=== PATIENT | female | born 1995 | race African-American/Black ===

== ENCOUNTER 2024-05-02 16:51 | Emergency (ER) | payer BC, MEDICAID, SELFPAY ==
[2024-05-02 17:18] VITALS: BP 148/109; PULSE 85; RESP 16; TEMP 36.4; O2SAT 99
--- NOTE | 2024-05-02 17:38 | ED_ITS ---
HPI - URI/Sore Throat General Chief Complaint: Upper Respiratory Infection Stated Complaint: cough,diarrhea,left shoulder pain Time Seen by Provider: 05/02/24 17:03 Source: patient Mode of arrival: ambulatory Limitations: no limitations History of Present Illness HPI Narrative: Patient is a 28-year-old female that presents with cough for a week and a half. Patient has also been vomiting the last few days and has not been able is take her blood pressure medicine. Denies any fever, sore throat, congestion, ear pain. Has been taking [id number] medication. Related Data Home Medications ?Medication ?Instructions ?Recorded ?Confirmed ?Last Taken ?Type hydroxyzine HCl 25 mg tablet 25 mg PO HS 05/02/24 05/02/24 Unknown History metoprolol succinate 50 mg 50 mg PO DAILY 05/02/24 05/02/24 Unknown History tablet,extended release 24 hr sertraline 100 mg tablet 100 mg PO Q24H 05/02/24 05/02/24 Unknown History Allergies Allergy/AdvReac Type Severity Reaction Status Date / Time No Known Allergies Allergy Verified 05/02/24 17:50 Review of Systems Review of Systems: All systems reviewed & are unremarkable except as noted in HPI and below Constitutional: Constitutional: Denies body ache(s), Denies chills, Denies fatigue, Denies fever(s), Denies headache(s), Denies malaise and Denies weakness Eyes: Eyes: Denies blurry vision, Denies itchy eyes and Denies loss of vision ENT: Denies otalgia, Denies headache(s), Denies nasal congestion, Denies sinus pain and Denies sore throat Cardiovascular: Cardiovascular: Denies chest pain, Denies irregular heart rhythm and Denies dyspnea Respiratory: Respiratory: Reports cough and Denies dyspnea Gastrointestinal: Gastrointestinal: Denies abdominal pain, Denies diarrhea, Reports nausea and Reports vomiting Musculoskeletal: Musculoskeletal: Denies back pain, Denies myalgias and Denies arthralgias Integumentary/Breasts: Skin/Breast: Denies pruritus and Denies rash Neurologic: Denies headache(s), Denies loss of vision and Denies weakness Psychiatric: Psychiatric: Reports no additional psychiatric complaints Endocrine: Endocrine: Denies fatigue Allergic/Immunologic: Allergic/Immunologic: Denies itchy eyes PMFSH Comments At time of signature, agree with nursing past medical, surgical, social and family history. There is no relevant family history pertinent to the presenting complaint. Exam Const: General: cooperative, healthy appearing, comfortable, no acute distress and well nourished Nutritional Appearance: well nourished Orientation/consciousness: patient oriented x3 Limitations: no limitations HENMT: Head: normal to inspection, normocephalic and atraumatic Ears: hearing grossly normal bilaterally, external ears normal, TM's normal bilaterally, EAC's normal and no periauricular adenopathy Face/Nose/Sinus: Normal external nose present, Abnormal mucous membranes and turbinates present erythematous bilateral and diffuse, normal facial exam, sinuses nontender and face symmetric Face and sinus: normal facial exam, sinuses nontender and face symmetric Mouth: Yes Normal oral and palatal mucosa present, Yes lip normal, Yes tongue normal, Yes Normal salivary glands and ducts present, Yes oropharynx normal and Yes moist mucous membranes Teeth and gingiva: dentition normal Throat: posterior oropharynx normal, tonsils normal and uvula midline Eyes: General: appearance normal, both eyes and all related structures Alignment and Position: alignment normal and position normal Periorbital: periorbital findings normal Eyelids: eyelids normal Pupils: Equal, round and reactive pupils present Neck: Neck: normal visual inspection, full ROM, no lymphadenopathy and supple Chest: Chest palpation & inspection: normal inspection of the chest and normal palpation of entire chest wall Resp: Effort & Inspection: normal respiratory effort, able to speak in complete sentences and Actively coughing actively coughing Auscultation: crackles (coarse) diffuse, no rales, no rhonchi and no wheezes Cardio: Rate: regular rate Rhythm: regular rhythm Heart sounds: S1 normal heart sound present and S2 normal heart sound present GI: Inspection: normal to inspection Skin: General skin exam: normal color and no rashes or lesions noted Neuro: General: patient oriented x3 and moves all extremities Cranial nerves: Yes Equal, round and reactive pupils present Speech: normal speech Gait exam (Neuro): Normal gait present Extrem: General: normal to inspection, full ROM and no edema Psych: Appearance: grossly normal and well kempt Mental Status: mental status grossly normal Speech and movement: Normal speech and movement present Affect: normal affect Attitude: cooperative Thought process: Normal thought process present Course Course Emergency Course: Discharge instructions reviewed with patient, as well as provided in writing per nursing staff. The instructions also include specific and strict return/GO TO THE ER as well as f/u information. All questions have been answered, and the patient deny any further questions with discharge and discharge plan. Portions of this record may have been created with voice recognition software Level of Care: Express Care Visit Vital Signs Vital signs: Vital Signs Temperature 36.4 C 05/02/24 17:18 Pulse Rate 85 05/02/24 17:18 Respiratory Rate 16 05/02/24 17:18 Blood Pressure 148/109 H 05/02/24 17:18 Pulse Oximetry 99 05/02/24 17:18 Oxygen Delivery Room Air 05/02/24 17:18 Temperature 36.4 C 05/02/24 17:18 Pulse Rate 85 05/02/24 17:18 Respiratory Rate 16 05/02/24 17:18 Blood Pressure 148/109 H 05/02/24 17:18 Pulse Oximetry 99 05/02/24 17:18 Oxygen Delivery Room Air 05/02/24 17:18 Reviewed MDM - URI/Sore Throat MDM Narrative Medical decision making narrative: Discussed importance taking blood pressure medicine Pt well hydrated appearing, in no respiratory distress, hemodynamically stable. Recommend supportive care. The patient is stable at time of discharge the clinical impression was discussed and the patient was given the opportunity to ask questions, which were addressed as completely as possible given the information available at present. Anticipatory guidance and return to care precautions were discussed and the importance of primary care follow-up was stressed and encouraged. The patient voiced understanding of the plan, indications to return, and the need for follow-up. Differential diagnosis considered: Heredia virus, strep pharyngitis, allergic rhinitis, upper respiratory tract infection, sinusitis, rhinosinusitis, nasopharyngitis. viral pharyngitis, otitis media, otitis externa, otitis effusion, foreign body, cerumen impaction, viral syndrome, and influenza.? Exam findings show no acute concerns or changes; patient is non-toxic appearing and is in no distress.? Patient is appropriate for outpatient treatment and follow- up.? Lab Data Attestation: I reviewed the patient's lab results. Lab results narrative: COVID negative Labs: Lab Results 05/02/24 Range/Units 17:20 POC Influenza A Ag Negative (Negative) POC Influenza B Ag Negative (Negative) Discharge Plan Discharge Clinical Impression: Acute purulent bronchitis Patient Disposition: Home, Self-Care Condition: Stable Instructions: Acute Bronchitis (ED) Additional Instructions: Take antibiotic as prescribed. Take steroids in the morning with food. Use Tessalon Perles as needed for cough. Use inhaler with spacer as needed. Other symptomatic treatments include: -Alternate Tylenol and Motrin per package directions for fever or pain. -Antihistamine medication such as Benadryl at night and Zyrtec/Claritin/Vaishali during the day can help improve symptoms. -Use Flonase twice a day for 5 days then daily to help reduce the inflammation and dry up your sinuses. -You can also use Sudafed or Mucinex. Be sure to drink plenty of water with these medications at least 8 ounces with every dose and it is important to drink 8 to 10 glasses of water per day. Water is a natural decongestant -Eat and drink things that are easy to swallow, like tea or soup, or popsicles. -Oral rinses such as: Salt water gargles and/or may use topical anesthetic (eg. Chloraseptic spray) or lozenges to relieve dryness or throat pain). -Frequent hand washing or hand operations intern is one of the best ways to prevent spread of infection. -Using a vaporizer or humidifier at night will also help thin secretions and help with coughing up phlegm. -Follow up with primary care provider in 3-5 days if condition is not improving - For new or worsening symptoms go directly to the nearest ER Patient Language: [place] Prescriptions: New prednisone 20 mg tablet 40 mg PO DAILY 5 Days Qty: 10 0RF amoxicillin 875 mg tablet 875 mg PO Q12H 7 Days Qty: 14 0RF benzonatate 100 mg capsule 100 mg PO BID PRN (Reason: cough) Qty: 14 0RF albuterol sulfate 90 mcg/actuation HFA aerosol inhaler 2 puff inhalation QID PRN (Reason: shortness of breath or wheezing) Qty: 6.7 0RF ondansetron 4 mg tablet,disintegrating 4 mg PO Q6-8H PRN (Reason: nausea and vomiting) Qty: 7 0RF (DME) Aerochamber MV Spacer See Rx Instructions .Route Qty: 1 0RF Rx Instructions: As directed No Action hydroxyzine HCl 25 mg tablet 25 mg PO HS metoprolol succinate 50 mg tablet extended release 24 hr 50 mg PO DAILY sertraline 100 mg tablet 100 mg PO Q24H Follow-up/Referrals: PHYSICIAN,IMPREGNATOR [employer] [Primary Care Provider] - Vinod Rodríguez MD [Physician] - 3 Days Stand Alone Forms: Work/School Release IP Time of Disposition: 18:15
[2024-05-02 17:45] LABS: EDINFLUASCREEN Negative (Negative); EDINFLUBSCREEN Negative (Negative)
== END 2024-05-02 18:18 | disposition home or self-care (01) ==
PROVIDERS: Emergency Provider Nurse Practitioner Family
DX: J20.9 Acute bronchitis, unspecified (principal); I10 Essential (primary) hypertension; F41.9 Anxiety disorder, unspecified; F32.A Depression, unspecified
CPT/HCPCS: 87804; 99203; G0463

== ENCOUNTER 2024-09-13 14:04 | Emergency (ER) | payer BC, MEDICAID, SELFPAY ==
--- NOTE | ~2024-09-13 | CT_ITS ---
CT abdomen pelvis w con Ordering provider: Didi Cruz PA-C History: 28 years Female with . n/v/d . Comparison: None. Technique: CT abdomen and pelvis with IV and without oral contrast. Automated exposure control and it erative reconstruction technique were employed. The dose-length product was 1401.91 mGy-cm. 100 mL Om nipaque 350 was given IV. Findings: VISUALIZED LOWER CHEST: Nodule is seen in the medial aspect of the right lung which measures 8 mm. UPPER ABDOMINAL ORGANS: Liver: Gallbladder fat infiltration Stomach/duodenum: Normal. Pancreas: Normal. Adrenals: Normal. Kidneys: Normal. PELVIC ORGANS: The bladder is underfilled. Follicles are seen in the ovaries. BOWEL AND MESENTERY: Colon: No evidence of diverticulitis.. Normal appendix. Small Bowel: Normal. No obstruction. Peritoneum/mesentery: No free air or free fluid. No mesenteric lymphadenopathy. RETROPERITONEUM: Normal aorta. No retroperitoneal lymphadenopathy. MUSCULOSKELETAL: Superficial soft tissues: The superficial soft tissues are normal. Bones: Normal spine. Bilateral spondylolysis at the level of L5-S1 is noted. IMPRESSION: 1. No evidence of appendicitis, diverticulitis or intestinal obstruction. No renal stones seen. 2. Fat infiltration of the liver. Reviewed, dictated and finalized at location A. IMPRESSION: 1. No evidence of appendicitis, diverticulitis or intestinal obstruction. No r enal stones seen. 2. Fat infiltration of the liver.
--- OUTSIDE RECORDS SUMMARY | 2024-09-13 14:06 | XMS_ITS | Continuity of Care Document ---
Author Organization [facility] Address [address] [place] [address] Phone Care Team Providers Care Recording Studio Set Up Worker Name Role Phone Isgrig OD OD, Jose Unavailable Unavailab le Allergies, Adverse Reactions, Alerts Substance Reaction Status Criticality No Known allergies Medications Medication Instructions Dosage Effective Dates (start - stop) Status Comments MELATONIN (unknown strength) Not Available - Active MULTIVITAMINS (unknown strength) Not Available - Active Procedures Procedure Date REFRACTION EYE EXAM, NEW PATIENT EYE EXAM, NEW PATIENT REFRACTION Advance Directives Directive Yes / No Effective Date File Name Resuscitation Not Answered N/A N/A Life Support Not Answered N/A N/A Intubation Not Answered N/A N/A Antibiotics Not Answered N/A N/A IV Fluid Support Not Answered N/A N/A Tube Feed Not Answered N/A N/A Other Directive N/A N/A WARNING:The information contained in this section is historical and is provided for information only and does not constitute a legal document or any assurance that the information is still accurate. Please verify the information with the collier of the legal document before using it for clinical purposes. Encounters Encounter Description Practice Location Reason(s) For Visit Diagnoses Date Provider Providers Copied on Encounter [facility], [address] [place], [id number] tel:[phone] [place] Routine eye exam 6 Isgoralia OD Jose. [facility], [facility] [address] [place], [id number]. tel:[phone] [facility], [facility] [place], [place], [id number] tel:[phone] NINA [place] HeadacheHype rmetropiaAst igmatism, unspecified 1 No Information Family History Family Member Type Diagnosis Age At Onset Mother Problem (finding) Color Blind Payers Payer name Insurance type Covered republican ID Barrington cooper(s) [facility] [id number] [facility] [id number] Social History Type Description Quantity Date Captured Comments Alcohol Use Details No Caffeine Use Details Unknown Tobacco Use Status Never smoked tobacco 2015 Smoking Status Never smoker Sex Female Chief Complaint And Reason For Visit No Information Reason For Referral Reason For Referral No Information History Of Present Illness Encounter Date Complaint History Of Prese nt Illness No Information Functional Status Date Functional Assessmen t No Information Instructions Date Instruction Additional Beni reagan - Return in 2 years with Jose Carrera OD for Complete. Related to Routine eye exam Routine eye exam OU Condition: new prob, no addtl w/u needed. - Discussed. No need for specs at this time. Good acuities uncorrected. Ocular health unremarkable. Pt ed to call right away if ever any sudden changes in vision. Monitor. Related to Routine eye exam Assessments Type Assessment Date No Information Patient Care Teams Name Effective Dates (start - stop) Status Members No Information
[2024-09-13 14:36] VITALS: BP 151/106; PULSE 98; RESP 16; TEMP 36.6; O2SAT 95
--- NOTE | 2024-09-13 16:00 | ED_ITS ---
HPI - General Adult General Chief complaint: Nausea/Vomiting/Diarrhea Stated complaint: High BP, vomiting Time Seen by Provider: 09/13/24 16:01 Focused HPI: Charley Sheth is a 28 y/o female who presents with reports that she started having diarrhea that was yellow 3 days ago and then 2 days ago started vomiting the same what she has been pooping / yellow bile stuff Denies abdominal pain /she states feeling hot and cold No recent antibiotics GENERAL: Well-appearing, well-nourished, and in no acute distress. HEAD: Normocephalic, atraumatic. CHEST: Clear to auscultation. No respiratory distress. HEART: Regular rate and rhythm. NEURO: Alert and oriented x3. Patient screened in triage and initial orders placed. Additional care and disposition to be based upon diagnostic testing and treatment. Related Data Home Medications Medication Instructions Recorded Confirmed Last Taken Type hydroxyzine HCl 25 mg tablet 25 mg PO HS 05/02/24 05/02/24 Unknown History metoprolol succinate 50 mg 50 mg PO DAILY 05/02/24 05/02/24 Unknown History tablet,extended release 24 hr sertraline 100 mg tablet 100 mg PO Q24H 05/02/24 05/02/24 Unknown History Allergies Allergy/AdvReac Type Severity Reaction Status Date / Time No Known Allergies Allergy Verified 09/13/24 14:05 Course Vital Signs Vital signs: Vital Signs Temperature 36.6 C 09/13/24 14:36 Pulse Rate 98 09/13/24 14:36 Respiratory Rate 16 09/13/24 14:36 Blood Pressure 151/106 H 09/13/24 14:36 Pulse Oximetry 95 09/13/24 14:36 Oxygen Delivery Room Air 09/13/24 14:36 Temperature 36.7 C 09/14/24 01:40 Pulse Rate 66 09/14/24 01:40 Respiratory Rate 13 09/14/24 01:40 Blood Pressure 119/48 L 09/14/24 01:40 Pulse Oximetry 100 09/14/24 01:40 Oxygen Delivery Room Air 09/13/24 14:36 Medical Decision Making Vital Signs Vital Signs: Vital Signs Temperature 36.6 C 09/13/24 14:36 Pulse Rate 98 09/13/24 14:36 Respiratory Rate 16 09/13/24 14:36 Blood Pressure 151/106 H 09/13/24 14:36 Pulse Oximetry 95 09/13/24 14:36 Oxygen Delivery Room Air 09/13/24 14:36 Temperature 36.7 C 09/14/24 01:40 Pulse Rate 66 09/14/24 01:40 Respiratory Rate 13 09/14/24 01:40 Blood Pressure 119/48 L 09/14/24 01:40 Pulse Oximetry 100 09/14/24 01:40 Oxygen Delivery Room Air 09/13/24 14:36 Lab Data 09/13/24 21:23 09/13/24 21:23 Labs: Lab Results 09/13/24 09/13/24 09/13/24 Range/Units 21:22 21:23 21:27 WBC 11.3 H (4.5-10.0) K/mm3 RBC 5.45 H (4.2-5.4) M/mm3 Hgb 13.6 (12.0-15.0) g/dL Hct 44.0 (37.0-47.0) % MCV 80.7 (80-100) fl MCH 25.0 L (26-34) pg MCHC 30.9 L (32-36) g/dl RDW 14.3 (11.5-14.5) % Plt Count 408 H (150-375) k/mm3 MPV 10.6 H (7.4-10.4) fl Immature Gran % (Auto) 0.3 (0-0.5) % Neut % (Auto) 57.3 (45.5-73.1) % Lymph % (Auto) 34.6 (18.3-44.2) % [place] % (Auto) 5.5 (2.6-8.5) % Eos % (Auto) 1.7 (0-4.4) % Baso % (Auto) 0.6 (0.2-1.2) % Lymph # (Auto) 3.90 H (0.9-3.2) K/mm3 [place] # (Auto) 0.6 (0.1-0.6) K/mm3 Eos # (Auto) 0.2 (0-0.3) K/mm3 Baso # (Auto) 0.1 (0.0-0.1) K/mm3 Abs Immat Gran (auto) 0.03 (0.00-0.031) K/mm3 Absolute Neuts (auto) 6.5 (1.3-6.7) K/mm3 Absolute Nucleated RBC 0.000 (0.0-0.012) K/mm3 Nucleated RBC % 0.0 (0.0-0.2) % Sodium 139 (137-145) mmol/L Potassium 3.4 (3.4-5.0) mmol/L Chloride 102 (98-107) mmol/L Carbon Dioxide 27 (22-30) mmol/L Anion Gap 10 (4-12) mmol/L BUN 8 (7-17) mg/dL Creatinine 0.71 (0.7-1.0) mg/dL Estim Creat Clear Calc 131 ml/min Estimated GFR > 60 (59 - ) Glucose 95 (65-110) mg/dL Calcium 9.5 (8.4-10.2) mg/dL Magnesium 2.2 (1.6-2.3) mg/dL Total Bilirubin 0.7 (0.2-1.3) mg/dL AST 53 H (14-36) U/L ALT 43 H (6-35) U/L Alkaline Phosphatase 93 (38-126) U/L Total Protein 8.0 (6.3-8.2) g/dL Albumin 4.7 (3.5-5.1) g/dL Lipase 97 (23-300) U/L POC Urine HCG, Qual Negative (Negative) Discharge Plan Discharge Clinical Impression: Gastroenteritis, Anxiety, Incidental pulmonary nodule Patient Disposition: Home Condition: Stable Instructions: Antibiotic Form, Clear Liquid Diet (ED), Gastroenteritis (ED), Acute Nausea and Vomiting (ED) Additional Instructions: Utilize Tylenol, Bentyl as needed for further abdominal discomfort. Utilize zofran as needed for further nausea. Increase fluid intake. Recommend electrolyte rich fluids, gatorade, pedialyte, body armour. Recommend clear liquids or bland diet until symptoms improve, such as bananas, rice, applesauce, toast, or crackers. Follow up with your primary care doctor for further evaluation. Return to the ED if you experience worsening or severe symptoms, unable to keep down food or drink, severe pain, fevers, rectal bleeding, vomiting blood, or any other symptoms of concern. Your CT scan showed evidence of a pulmonary nodule. You will need repeat imaging of this in the future. Follow-up with your primary care doctor for this. Patient Language: Swedish Prescriptions: New dicyclomine 20 mg tablet 20 mg PO TID PRN (Reason: Abdominal Discomfort) Qty: 15 0RF ondansetron 4 mg tablet,disintegrating 4 mg PO Q8H PRN (Reason: nausea and vomiting) Qty: 15 0RF No Action hydroxyzine HCl 25 mg tablet 25 mg PO HS metoprolol succinate 50 mg tablet extended release 24 hr 50 mg PO DAILY sertraline 100 mg tablet 100 mg PO Q24H prednisone 20 mg tablet 40 mg PO DAILY 5 Days Qty: 10 0RF amoxicillin 875 mg tablet 875 mg PO Q12H 7 Days Qty: 14 0RF benzonatate 100 mg capsule 100 mg PO BID PRN (Reason: cough) Qty: 14 0RF albuterol sulfate 90 mcg/actuation HFA aerosol inhaler 2 puff inhalation QID PRN (Reason: shortness of breath or wheezing) Qty: 6.7 0RF ondansetron 4 mg tablet,disintegrating 4 mg PO Q6-8H PRN (Reason: nausea and vomiting) Qty: 7 0RF (DME) Aerochamber MV Spacer See Rx Instructions .Route Qty: 1 0RF Rx Instructions: As directed Follow-up/Referrals: PHYSICIAN,SHRIMP PEELING MACHINE TENDER [Primary Care Provider] - Vinod Rodríguez MD [Physician] - (PRIMARY CARE) Time of Disposition: 00:53
--- NOTE | 2024-09-13 21:13 | PC.NURSE ---
pt presents to ED c/o n/v onset monday. Pt states she hasnt taken been compliant with HTN meds, and antianxiety medication. Pt states she hasnt been able to keep anything down, and is vomiting bile. HX: IBS
[2024-09-13 21:29] LABS: Basophils Absolute Auto 0.1 K/mm3 (0.0-0.1); Basophils Percent Auto 0.6 % (0.2-1.2); Eosinophils Absolute Auto 0.2 K/mm3 (0-0.3); Eosinophils Percent Auto 1.7 % (0-4.4); Hemoglobin 13.6 g/dL (12.0-15.0); Immature Granulocyte Absolute 0.03 K/mm3 (0.00-0.031); Immature Granulocyte Percent A 0.3 % (0-0.5); Lymphocytes Percent Auto 34.6 % (18.3-44.2); Mean Corpuscular HGB Conc 30.9 g/dl (32-36); Mean Corpuscular Volume 80.7 fl (80-100); Mean Platelet Volume 10.6 fl (7.4-10.4); Monocytes Absolute Auto 0.6 K/mm3 (0.1-0.6); Monocytes Percent Auto 5.5 % (2.6-8.5); Neutrophils Absolute Auto 6.5 K/mm3 (1.3-6.7); Neutrophils Percent Auto 57.3 % (45.5-73.1); Platelet Count Result 408 k/mm3 (150-375); Red Blood Count 5.45 M/mm3 (4.2-5.4); Red Cell Distribution Width 14.3 % (11.5-14.5); White Blood Count 11.3 K/mm3 (4.5-10.0)
[2024-09-13 21:30] LABS: BEDSIDEPREGUCG Negative (Negative)
--- OUTSIDE RECORDS SUMMARY | 2024-09-13 21:33 | XMS_ITS | Continuity of Care Document ---
Author Organization [facility] Address [address] [place] [address] Phone Care Team Providers Care Stockroom Worker Name Role Phone Isgrig OD OD, [...] on Encounter [facility], [address], [id number] [phone] NINA [place] Routine eye exam 6 Isgoralia OD Jose. [facility], [facility] [address], [id number]. [phone] [facility], [facility] [place], [place], [id number] tel:[phone] NINA [place] HeadacheHype rmetropiaAst igmatism, unspecified 1 No Information Family History Family Member Type Diagnosis Age At Onset Mother Problem (finding) Color Blind Payers Payer name Insurance type Covered libertarian ID Barrington cooper(s) [facility] [id number] [facility] [id number] Social History Type Description Quantity Date [...]
[2024-09-13] MEDS: FAMOTIDINE 20 MG/2 ML VIAL IV PUSH (21:41)
[2024-09-13] MEDS: SODIUM CHLORIDE 0.9% IV 1,000 ML 999 ML IV CONT (21:41)
[2024-09-13] MEDS: ONDANSETRON INJ 4 MG/2 ML VIAL IV PUSH (21:41)
[2024-09-13 21:42] LABS: Alanine Aminotransferase 43 U/L (6-35); Albumin Level 4.7 g/dL (3.5-5.1); Alkaline Phosphatase 93 U/L (38-126); Anion Gap 10 mmol/L (4-12); Aspartate Amino Transferase 53 U/L (14-36); Bilirubin,Total 0.7 mg/dL (0.2-1.3); Blood Urea Nitrogen 8 mg/dL (7-17); Calcium 9.5 mg/dL (8.4-10.2); Carbon Dioxide 27 mmol/L (22-30); Chloride 102 mmol/L (98-107); Estimated CRCL calculation 131 ml/min; Estimated Glomerular Filt Rate > 60; Glucose 95 mg/dL (65-110); Lipase 97 U/L (23-300); Potassium 3.4 mmol/L (3.4-5.0); Sodium 139 mmol/L (137-145)
--- NOTE | 2024-09-13 22:13 | ED_ITS ---
HPI - Nausea/Vomiting/Diarrhea General Chief complaint: Nausea/Vomiting/Diarrhea Stated complaint: High BP, vomiting Time Seen by Provider: 09/13/24 16:01 Source: patient Mode of arrival: ambulatory Limitations: no limitations History of Present Illness HPI Narrative: Patient is a 28 y/o female who presents to the ED with c/o nausea and vomiting. Patient reports he has been sick for the past 3 days with nausea, vomiting, diarrhea. States her emesis and stool have been yellow in color. She notes history of IBS. Has had difficulty keeping down food and drink. Denies hematemesis, rectal bleeding. Denies fevers. Denies cough or cold symptoms. She does note that other people at work have been sick as well. Related Data Home Medications Medication Instructions Recorded Confirmed Last Taken Type hydroxyzine HCl 25 mg tablet 25 mg PO HS 05/02/24 05/02/24 Unknown History metoprolol succinate 50 mg 50 mg PO DAILY 05/02/24 05/02/24 Unknown History tablet,extended release 24 hr sertraline 100 mg tablet 100 mg PO Q24H 05/02/24 05/02/24 Unknown History Allergies Allergy/AdvReac Type Severity Reaction Status Date / Time No Known Allergies Allergy Verified 09/13/24 14:05 Review of Systems 2 Review of Systems: All systems reviewed & are unremarkable except as noted in HPI. All systems reviewed & are unremarkable except as noted in HPI and below Exam 2 Narrative: GENERAL: Well appearing, morbidly obese with BMI of 42.2, non-toxic, in no acute distress. HEAD: Normocephalic, atraumatic. RESPIRATORY: Airway patent, respirations nonlabored. Clear to auscultation bilaterally, no rales, rhonchi, wheezing. CARDIOVASCULAR: Regular rate and rhythm without murmurs, rubs, or gallops. ABDOMINAL: Soft, very mild tenderness in epigastric region, periumbilical region, nondistended. Normoactive BS. MUSCULOSKELETAL: Moves all extremities. No gross deformities. SKIN: Warm, dry, normal color. NEURO: A&O X3. Speech clear. PSYCHIATRIC: Appropriate mood and affect. Normal interaction. Course Vital Signs Vital signs: Vital Signs Temperature 97.8 F 09/13/24 14:36 Pulse Rate 98 09/13/24 14:36 Respiratory Rate 16 09/13/24 14:36 Blood Pressure 151/106 H 09/13/24 14:36 Pulse Oximetry 95 09/13/24 14:36 Oxygen Delivery Room Air 09/13/24 14:36 Temperature 98.1 F 09/14/24 01:40 Pulse Rate 66 09/14/24 01:40 Respiratory Rate 13 09/14/24 01:40 Blood Pressure 119/48 L 09/14/24 01:40 Pulse Oximetry 100 09/14/24 01:40 Oxygen Delivery Room Air 09/13/24 14:36 MDM - Nausea/Vomiting/Diarrhea MDM Narrative Medical decision making narrative: Patient presented to ED with several day history of nausea, vomiting, diarrhea. History of IBS. Vital signs are stable upon arrival. Patient in no acute distress. Cbc with blood cell count of 11.3. Likely reactive. Fluids ongoing. CMP with stable electrolytes, stable kidney function. Minimal transaminitis. Normal bilirubin, lipase. Urine is negative. Patient declined further urinalysis testing. She denies any urinary complaints, dysuria, hematuria. Does not have concern for UTI. CT scan of abdomen/pelvis was obtained and no concerning findings. Does show incidental pulmonary nodule which I made patient aware of. Patient feeling better with supportive therapy. She did experience episode of anxiety in the ED. Does have history of this. States she has had increased stress recently. She was given small dose of Ativan with improvement. Patient safe for discharge home. Will discharge with Bentyl and Zofran. Given strict return precautions. She agrees with plan. Discharged in stable condition. Medical Records Attestation: I reviewed the patient's medical records. Lab Data Attestation: I reviewed the patient's lab results. 09/13/24 21:23 09/13/24 21:23 Labs: Lab Results 09/13/24 09/13/24 09/13/24 Range/Units 21:22 21:23 21:27 WBC 11.3 H (4.5-10.0) K/mm3 RBC 5.45 H (4.2-5.4) M/mm3 Hgb 13.6 (12.0-15.0) g/dL Hct 44.0 (37.0-47.0) % MCV 80.7 (80-100) fl MCH 25.0 L (26-34) pg MCHC 30.9 L (32-36) g/dl RDW 14.3 (11.5-14.5) % Plt Count 408 H (150-375) k/mm3 MPV 10.6 H (7.4-10.4) fl Immature Gran % (Auto) 0.3 (0-0.5) % Neut % (Auto) 57.3 (45.5-73.1) % Lymph % (Auto) 34.6 (18.3-44.2) % [place] % (Auto) 5.5 (2.6-8.5) % Eos % (Auto) 1.7 (0-4.4) % Baso % (Auto) 0.6 (0.2-1.2) % Lymph # (Auto) 3.90 H (0.9-3.2) K/mm3 [place] # (Auto) 0.6 (0.1-0.6) K/mm3 Eos # (Auto) 0.2 (0-0.3) K/mm3 Baso # (Auto) 0.1 (0.0-0.1) K/mm3 Abs Immat Gran (auto) 0.03 (0.00-0.031) K/mm3 Absolute Neuts (auto) 6.5 (1.3-6.7) K/mm3 Absolute Nucleated RBC 0.000 (0.0-0.012) K/mm3 Nucleated RBC % 0.0 (0.0-0.2) % Sodium 139 (137-145) mmol/L Potassium 3.4 (3.4-5.0) mmol/L Chloride 102 (98-107) mmol/L Carbon Dioxide 27 (22-30) mmol/L Anion Gap 10 (4-12) mmol/L BUN 8 (7-17) mg/dL Creatinine 0.71 (0.7-1.0) mg/dL Estim Creat Clear Calc 131 ml/min Estimated GFR > 60 (59 - ) Glucose 95 (65-110) mg/dL Calcium 9.5 (8.4-10.2) mg/dL Magnesium 2.2 (1.6-2.3) mg/dL Total Bilirubin 0.7 (0.2-1.3) mg/dL AST 53 H (14-36) U/L ALT 43 H (6-35) U/L Alkaline Phosphatase 93 (38-126) U/L Total Protein 8.0 (6.3-8.2) g/dL Albumin 4.7 (3.5-5.1) g/dL Lipase 97 (23-300) U/L POC Urine HCG, Qual Negative (Negative) Imaging Data Attestation: I personally reviewed and interpreted this imaging study as follows: Radiologist's impression: ITS Impressions Abdomen/Pelvis CT 09/14/24 00:41 IMPRESSION: 1. No evidence of appendicitis, diverticulitis or intestinal obstruction. No renal stones seen. 2. Fat infiltration of the liver. ADDENDUM: 09/14/24 0052 Nodule in the right lung lower lobe medially measuring [address] follow-up in 6 months is advised. Discharge Plan Discharge Clinical Impression: Gastroenteritis, Anxiety, Incidental pulmonary nodule Patient Disposition: Home Condition: Stable Instructions: Antibiotic Form, Clear Liquid Diet (ED), Gastroenteritis (ED), Acute Nausea and Vomiting (ED) Additional Instructions: Utilize Tylenol, Bentyl as needed for further abdominal discomfort. Utilize zofran as needed for further nausea. Increase fluid intake. Recommend electrolyte rich fluids, gatorade, pedialyte, body armour. Recommend clear liquids or bland diet until symptoms improve, such as bananas, rice, applesauce, toast, or crackers. Follow up with your primary care doctor for further evaluation. Return to the ED if you experience worsening or severe symptoms, unable to keep down food or drink, severe pain, fevers, rectal bleeding, vomiting blood, or any other symptoms of concern. Your CT scan showed evidence of a pulmonary nodule. You will need repeat imaging of this in the future. Follow-up with your primary care doctor for this. Patient Language: Estonian Prescriptions: New dicyclomine 20 mg tablet 20 mg PO TID PRN (Reason: Abdominal Discomfort) Qty: 15 0RF ondansetron 4 mg tablet,disintegrating 4 mg PO Q8H PRN (Reason: nausea and vomiting) Qty: 15 0RF No Action hydroxyzine HCl 25 mg tablet 25 mg PO HS metoprolol succinate 50 mg tablet extended release 24 hr 50 mg PO DAILY sertraline 100 mg tablet 100 mg PO Q24H prednisone 20 mg tablet 40 mg PO DAILY 5 Days Qty: 10 0RF amoxicillin 875 mg tablet 875 mg PO Q12H 7 Days Qty: 14 0RF benzonatate 100 mg capsule 100 mg PO BID PRN (Reason: cough) Qty: 14 0RF albuterol sulfate 90 mcg/actuation HFA aerosol inhaler 2 puff inhalation QID PRN (Reason: shortness of breath or wheezing) Qty: 6.7 0RF ondansetron 4 mg tablet,disintegrating 4 mg PO Q6-8H PRN (Reason: nausea and vomiting) Qty: 7 0RF (DME) Aerochamber MV Spacer See Rx Instructions .Route Qty: 1 0RF Rx Instructions: As directed Follow-up/Referrals: PHYSICIAN,FRONT END APPLICATION DEVELOPER [Primary Care Provider] - Vinod Rodríguez MD [Physician] - (PRIMARY CARE) Time of Disposition: 00:53
[2024-09-13 22:32] LABS: Magnesium 2.2 mg/dL (1.6-2.3)
[2024-09-14] MEDS: ACETAMINOPHEN 500 MG TABLET 1000 MG PO (00:43)
[2024-09-14] MEDS: LORazepam (*CRX) 0.5 MG TABLET PO (00:44)
[2024-09-14 01:40] VITALS: BP 119/48; PULSE 66; RESP 13; TEMP 36.7; O2SAT 100
== END 2024-09-14 01:42 | disposition home or self-care (01) ==
PROVIDERS: Nurse Practitioner Family; Emergency Provider Physician Assistant
DX: K52.9 Noninfective gastroenteritis and colitis, unspecified (principal); F41.9 Anxiety disorder, unspecified; R91.1 Solitary pulmonary nodule
CPT/HCPCS: 36415; 74177; 80053; 81025; 83690; 83735; 85025; 96361; 96374; 96375; 99284; A9270; J2405; J7030; Q9967

== ENCOUNTER 2024-09-25 13:20 | Outpatient (CLI) | payer MEDICAID, SELFPAY ==
--- NOTE | ~2024-09-25 | US_ITS ---
Limited Abdominal Sonogram: Real-time sonographic imaging of the right upper quadrant was performed. Clinical History: Abnormal liver enzymes Findings: The liver appears echogenic with no evidence of mass lesion or bile duct dilatation. Main portal vein demonstrates normal direction of flow. The gallbladder is well distended, and appears nor mal with no evidence of gallstone or wall thickening. The common bile duct measures 3 mm. The visual ized aorta and IVC are unremarkable. Pancreas largely obscured by bowel gas shadowing. Right kidney u nremarkable. Impression: Diffuse fatty infiltration of the liver. Reviewed, dictated and finalized at location M. Impression: Diffuse fatty infiltration of the liver.
== END 2024-09-25 13:21 | disposition home or self-care (01) ==
LOC: MICIMG 13:21
PROVIDERS: PCP Emergency Medicine; Visit Provider Emergency Medicine
DX: R74.01 Elevation of levels of liver transaminase levels (principal); K76.0 Fatty (change of) liver, not elsewhere classified
CPT/HCPCS: 76705

== ENCOUNTER → 2024-11-20 13:37 | Outpatient (CLI) | payer MEDICAID, SELFPAY ==
--- NOTE | ~2024-11-20 | XR_ITS ---
EXAM/ PROCEDURE: XR shoulder RT min 2V, XR humerus RT - 11/20/2024 13:59 CDT HISTORY: 29 years old Female with RTshoulder/ mid upper humerus pain 2 weeks, no trauma injury COMPARISON: None available FINDINGS/ IMPRESSION: There are no fractures or dislocations.Joint spaces are within normal limits. Reviewed, dictated and finalized at location A.
== END ==
LOC: EXPCRAD 13:42
PROVIDERS: PCP Emergency Medicine; Visit Provider Emergency Medicine
DX: M25.511 Pain in right shoulder (principal); M79.621 Pain in right upper arm
CPT/HCPCS: 73030; 73060